=== PATIENT | female | born 1965 | race Two or more races ===

== ENCOUNTER 2019-04-02 08:49 | Emergency (ER) | payer MEDICAID ==
[~2019-04-02] VITALS: Ht 165.1 cm; Wt 64.0 kg
[2019-04-02 10:25] VITALS: BP 127/76
== END 2019-04-02 10:33 | disposition home or self-care (01) ==
LOC: ER 08:49
DX: J06.9 Acute upper respiratory infection, unspecified (principal); F41.9 Anxiety disorder, unspecified; F32.9 Major depressive disorder, single episode, unspecified; Z88.2 Allergy status to sulfonamides; Z88.6 Allergy status to analgesic agent; Z91.040 Latex allergy status; Z88.0 Allergy status to penicillin
CPT/HCPCS: 71045; 99283

== ENCOUNTER 2022-04-29 14:12 | Emergency (ER) | payer SELFPAY ==
[~2022-04-29] VITALS: Ht 160 cm; Wt 57.0 kg
[2022-04-29 14:40] VITALS: BP 131/70
[2022-04-29] MEDS ORDERED: DIPH25CA83 MT (17:12)
[2022-04-29] MEDS ORDERED: ACET-2708 MT (17:12)
== END 2022-04-29 17:50 | disposition home or self-care (01) ==
LOC: ER 14:12
DX: S30.860A Insect bite (nonvenomous) of lower back and pelvis, initial encounter (principal); E78.00 Pure hypercholesterolemia, unspecified; Z88.0 Allergy status to penicillin; Z88.6 Allergy status to analgesic agent; Z91.040 Latex allergy status; Z88.2 Allergy status to sulfonamides; W57.XXXA Bitten or stung by nonvenomous insect and other nonvenomous arthropods, initial encounter; Y93.89 Activity, other specified; Y92.89 Other specified places as the place of occurrence of the external cause; Y99.8 Other external cause status
CPT/HCPCS: 99282